=== PATIENT | male | born 1975 | race Hispanic/Latino ===

== ENCOUNTER 2022-05-18 11:47 | Day surgery (SDC) | payer SELFPAY ==
[2022-05-14 16:33] LABS: HEMATOCRIT 46.8 % (42-54); MEAN CORPUSCULAR HEMOGLOBIN 30.4 pg (27.0-33.0); MEAN CORPUSCULAR HGB CONC 33.3 g/dL (32.0-36.0); MEAN CORPUSCULAR VOLUME 91.1 fL (79-99); RED BLOOD CELL COUNT(AUTO) 5.14 MIL/uL (4.50-6.20); RED CELL DISTRIBUTION WIDTH 12.4 % (11.0-15.5); WHITE BLOOD COUNT (AUTO) 8.5 K/uL (4.8-10.8)
[2022-05-14 16:40] LABS: APPEARANCE,URINE CLOUDY (CLEAR); BILIRUBIN,URINE NEGATIVE (NEGATIVE); COLOR,URINE YELLOW (YELLOW); GLUCOSE, URINE (UA) NEGATIVE (NEGATIVE); KETONES,URINE NEGATIVE (NEGATIVE); LEUKOCYTE ESTERASE ,URINE 500 Leu/uL (NEGATIVE); NITRATE,URINE 2+ (NEGATIVE); PH,URINE 5.5 (5.0-8.0); PROTEIN,URINE 10 mg/dL (NEGATIVE); UROBILINOGEN,URINE 0.2 mg/dL (0.2-1.0)
[2022-05-14 16:45] LABS: BACTERIA,URINE RARE /HPF (None Seen); MUCUS,URINE RARE LPF (None Seen); SQUAMOUS EPITHELIAL CELL,UR RARE /HPF (0-2); WBC,URINE 51-100 /HPF (0-1)
[2022-05-14 16:49] LABS: CREATININE 1.1 mg/dL (0.5-1.5); POTASSIUM 4.4 mmol/L (3.5-5.1); TOTAL PROTEIN, SERUM 8.6 g/dL (6.0-8.3)
[2022-05-14 17:15] LABS: INR 2.9 (0.85-1.15); PROTHROMBIN TIME 29.8 SEC (9.6-11.6)
[2022-05-17 10:31] VITALS: BP 131/85
[~2022-05-18] VITALS: Ht 170.2 cm; Wt 95.4 kg
[2022-05-18] VITALS (13 sets, daily range): BP systolic 130–165; BP diastolic 86–98
[~2022-05-18 11:47] MED LIST: LACTATED RINGERS 1000ML 1,000 ML IV SCH; LISI10TA24 PO; ZOSYN 3.375GM+NS 50ML 50 ML IV SCH
[2022-05-18 12:22] LABS: INR 0.94 (0.85-1.15); PROTHROMBIN TIME 10.3 SEC (9.6-11.6)
[2022-05-18] MEDS ORDERED: FENTANYL CITRATE PF 50 MCG/1 ML 2ML VIAL ONE ×2 (20:20→20:59)
[2022-05-18] MEDS ORDERED: PROPOFOL 10 MG/ML 20ML VIAL IV ONE ×2 (20:20→20:57)
[2022-05-18] MEDS ORDERED: ROCURONIUM 10MG/1ML SYR 10 MG/ML ML ONE (20:20)
[2022-05-18] MEDS ORDERED: MIDAZOLAM HCL 1 MG/ML 2ML VIAL ONE (20:20)
[2022-05-18] MEDS ORDERED: MEPERIDINE-PF 25 MG/ML SYG ONE (20:32)
[2022-05-18] MEDS ORDERED: NEOSTIGMINE 5MG/5ML SYR IV ONE (20:53)
[2022-05-18] MEDS ORDERED: GLYCOPYRROLATE 1 MG/5 ML SYRINGE ONE (20:53)
== END 2022-05-18 23:37 | disposition home or self-care (01) ==
LOC: DAH 11:47
PROVIDERS: ATTEND Urology
DX: N35.919 Unspecified urethral stricture, male, unspecified site (principal); Z20.822 Contact with and (suspected) exposure to COVID-19; I10 Essential (primary) hypertension; E66.9 Obesity, unspecified; G47.00 Insomnia, unspecified; Z79.899 Other long term (current) drug therapy; Z79.01 Long term (current) use of anticoagulants
CPT/HCPCS: 71046; 87426; 80053; 85027; 85610 ×2; 85730; 87077; 87088; 87186; 81001; 36415 ×2; 93005; 52281; 72190; A6260; J7120 ×2; A4663; A4354; J3010 ×2; J3490; J2710; J2250; J2704 ×2; J2543; J2175; A4358; A4649; C1769; A4930; A4215; A4223; A4222; A4221; C1758 ×3; A5113; A4600